=== PATIENT | male | born 1995 | race Asian ===

== ENCOUNTER 2023-02-09 05:58 | Emergency (ER) | payer OTHER ==
[~2023-02-09] VITALS: Ht 170.2 cm; Wt 85.5 kg
[2023-02-09] MEDS ORDERED: NAPR-837 PO (08:51)
[2023-02-09 09:19] VITALS: BP 137/75
== END 2023-02-09 09:42 | disposition home or self-care (01) ==
LOC: M ED 05:58
DX: M72.2 Plantar fascial fibromatosis (principal)